=== PATIENT | male | born 1960 | race Caucasian/White ===

== ENCOUNTER → 2016-11-08 | Outpatient (CLI) | payer BC ==
[~2016-11-08] MED LIST: ACET-749 PO; CIPR-255 PO; FLM4 PO; PHEN-775 PO; SULF800T23 PO
== END | disposition home or self-care (01) ==
LOC: C.LABMFLN 07:56
PROVIDERS: ATTEND Urology
DX: R31.29 Other microscopic hematuria (principal); N39.0 Urinary tract infection, site not specified

== ENCOUNTER → 2017-03-24 | Outpatient (CLI) | payer BC ==
[2017-03-24 13:50] LABS: ALT/SGPT 29 U/L (12-78); BLOOD UREA NITROGEN 15 mg/dl (7-18); BUN/CREATININE RATIO 14.9 (10-20); CARBON DIOXIDE 32 mmol/L (21-32); CHLORIDE 106 mmol/L (98-107); CHOLESTEROL 164 mg/dl (0-200); GLUCOSE 105 mg/dl (70-99); SODIUM 144 mmol/L (136-145); TRIGLYCERIDES 105 mg/dl (0-150); VERY LOW DENSITY LIPOPROT CALC 21 mg/dl
[2017-03-24 13:58] LABS: AST/SGOT 20 U/L (15-37); CHOLESTEROL/HDL RATIO 3.4; HDL CHOLESTEROL 48 mg/dl; LDL CHOLESTEROL CALCULATED 95 mg/dl
[2017-03-24 14:10] LABS: ESTIMATED AVERAGE GLUCOSE 128 mg/dl; HA1C FLAG Normal (Normal)
== END | disposition home or self-care (01) ==
LOC: C.LABMFLN 08:20
PROVIDERS: ATTEND Family Medicine
DX: E78.00 Pure hypercholesterolemia, unspecified (principal); R97.20 Elevated prostate specific antigen [PSA]; R73.03 Prediabetes

== ENCOUNTER → 2017-04-13 | Outpatient (CLI) | payer BC | END | disposition home or self-care (01) | LOC: C.LABMFLN 09:00 | PROVIDERS: ATTEND Family Medicine | DX: R30.0 Dysuria (principal) ==

== ENCOUNTER → 2017-05-29 | Outpatient (CLI) | payer BC | END | disposition home or self-care (01) | LOC: C.PATHSPEC 17:12 | PROVIDERS: ATTEND Urology | DX: N20.0 Calculus of kidney (principal) ==

== ENCOUNTER → 2017-06-02 | Outpatient (CLI) | payer BC ==
[~2017-06-02] MED LIST changes: +OPTIRAY 320 IV PRN
--- NOTE | 2017-06-02 11:14 | DIAGNOSTIC IMAGING REPORT ---
CT ABD/PELVIS COMBO CLINICAL HISTORY: R31.0 Gross hematuria COMPARISON STUDY: None. TECHNIQUE: Unenhanced images were obtained through the abdomen and pelvis. The patient was injected with 50 cc Optiray 320. The patient is rescanned in a dynamic helical fashion during intravenous administration of additional 40 cc Optiray 320. A dose lowering technique was utilized adhering to the principles of ALARA. CT DOSE: 1311.40 mGycm FINDINGS: Lower chest: There are coronary artery calcifications. There are dependent basilar atelectatic changes. Liver: The contrast-enhanced liver is normal in size, contour, and attenuation. There is no intrahepatic biliary ductal dilatation. The hepatic veins and portal veins are patent. There is a 7 mm left lobe hepatic hypodensity, likely representing a cyst. There are calcifications within the right hepatic lobe, likely dystrophic. Gallbladder: Unremarkable. Spleen: Normal in size and attenuation. Pancreas: Unremarkable. Adrenal glands: Unremarkable. Kidneys: There is a 35mm upper pole left renal cyst. There is a 15 mm mid pole right renal cyst. No renal calculi are visualized. No solid renal masses are visualized. No collecting system or ureteral lesions are visualized. Bowel: There are no transition zones indicate bowel obstruction. There is no acute diverticulitis. The appendix appears normal. Peritoneum: There is no intraperitoneal free air or abdominal ascites. There is a tiny fat-containing right inguinal hernia. Vasculature: The abdominal aorta is normal in course and caliber. Adenopathy: None. Pelvic viscera: There are prostatic calcifications. There is a bladder base mass, likely representing a hypertrophied medial lobe of the prostate. Given history of hematuria, cystoscopic correlation should be considered. Skeletal structures: No destructive osseous lesions are seen. IMPRESSION: 1. No renal, ureteral, or bladder calculi identified 2. Bladder base mass, likely representing a hypertrophied median lobe of the prostate. Cystoscopic correlation is recommended given history of hematuria 3. No solid renal masses identified. Bilateral renal cysts. Electronically signed by: Guido Easley M.D. 06/02/2017 11:13 AM Dictated Date/Time: 06/02/2017 10:50 AM
== END | disposition home or self-care (01) ==
LOC: C.CTS 09:19
PROVIDERS: ATTEND Urology
DX: R31.0 Gross hematuria (principal); N28.1 Cyst of kidney, acquired; N32.9 Bladder disorder, unspecified

== ENCOUNTER → 2017-06-06 | Day surgery (SDC) | payer BC ==
[2017-06-02 11:14] VITALS: BMI 27.0
--- NOTE | 2017-06-02 11:45 | PAT Medication Instructions ---
Service Date Jun 02, 2017. Current Home Medication List Sulfa/Trimethoprim (Bactrim Ds 800MG/160MG), 1 TAB PO BID Tamsulosin HCl (Tamsulosin HCl), 1 CAP PO QD@1500 Medication Instructions For Your Scheduled Surgery - Take the following medications the morning of surgery with a sip of water: Sulfa/Trimethoprim (Bactrim Ds 800MG/160MG), 1 TAB PO BID - Take the following medications as scheduled the night before surgery: Sulfa/Trimethoprim (Bactrim Ds 800MG/160MG), 1 TAB PO BID Tamsulosin HCl (Tamsulosin HCl), 1 CAP PO QD@1500 If you have any questions please call us at [phone] or [phone] or [phone]
--- NOTE | 2017-06-02 12:19 | DIAGNOSTIC IMAGING REPORT ---
CHEST 2 VIEWS ROUTINE CLINICAL HISTORY: Preoperative chest COMPARISON STUDY: No previous studies for comparison. FINDINGS: The cardiac and mediastinal contours are normal. There is no evidence of focal pulmonary consolidation. There is no evidence of failure. No pleural effusions are visualized.[ IMPRESSION: No active disease in the chest. Electronically signed by: Guido Easley M.D. 06/02/2017 12:18 PM Dictated Date/Time: 06/02/2017 12:18 PM
[2017-06-02 13:05] LABS: BASO % 0.4 %; BASO ABS # 0.02 K/uL (0-0.2); COMPLETE YES; HEMATOCRIT 45.6 % (42-52); IG% 0.2 %; LYMPH % 27.4 %; LYMPH ABS # 1.39 K/uL (1.2-3.4); MEAN CELL VOLUME 89.2 fL (80-100); MEAN CORPUSCULAR HEMOGLOBIN 29.2 pg (25-34); MEAN CORPUSCULAR HGB CONC 32.7 g/dl (32-36); MEAN PLATELET VOLUME 10.3 fL (7.4-10.4); MONO % 7.5 %; NEUT % 61.5 %; PLATELET COUNT 274 K/uL (130-400); RED BLOOD COUNT 5.11 M/uL (4.7-6.1); WHITE BLOOD COUNT 5.08 K/uL (4.8-10.8)
[2017-06-02 13:25] LABS: BUN/CREATININE RATIO 9.7 (10-20); CALCIUM 8.9 mg/dl (8.5-10.1); CREATININE 1.3 mg/dl (0.60-1.40); POTASSIUM 4.2 mmol/L (3.5-5.1)
[~2017-06-06] VITALS: Ht 170.2 cm; Wt 80.6 kg
[~2017-06-06] MED LIST changes: +ACETAMINOPHEN 325 MG TAB PO PRN; +CIPROFLOXACIN / D5W 400 MG IV SCH; +DEXAMETHASONE SOD INJ 4 MG/ML VIAL ONE; +FENTANYL CITRATE INJ 50 MCG/1 ML 2 ML VIAL ONE; +LACTATED RINGER'S 1000ML 1,000 ML IV SCH; +LIDOCAINE HCL 2% 2 ML VIAL (20MG/ML) ONE; +MIDAZOLAM HCL 1 MG/ML 2ML VIAL ONE; +ONDANSETRON INJ 2 MG/ML 2 ML VIAL ONE; -OPTIRAY 320 IV PRN; +OXYCODONE/ACETAMINOPHEN 5-325 TAB PO PRN; +PROPOFOL IV EMULSION 10 MG/ML 20 ML VIAL IV ONE; +SODIUM CHLORIDE 0.9% 1000ML 1,000 ML IV SCH
[2017-06-06 11:20] VITALS: BP 119/78; PULSE 57; TEMP 36.6; O2SAT 99; Ht 170.2 cm; Wt 80.6 kg
--- NOTE | 2017-06-06 11:44 | History & Physical Bridge Note ---
H&P Re-Evaluation Bridge Note: I have examined the patient, reviewed the History & Physical and in the interval since the performance of the History & Physical I have noted the following changes of clinical significance: No changes noted
--- NOTE | 2017-06-06 12:01 | Discharge Instructions ---
Discharge Instructions Date of Service Jun 06, 2017. Admission Reason for Admission: Gross Hematuria Discharge Discharge Diagnosis / Problem: BPH Discharge Goals Goal(s): Decrease discomfort, Improve function, Increase independence, Improve disease control, Prevent Disease Progression Activity Recommendations Activity Limitations: resume your previous activity Lifting Limitations: none Exercise/Sports Limitations: none May Resume Sexual Activity: when tolerated Shower/Bathe: no limitations Driving or Machine Use: no limitations . Instructions / Follow-Up Instructions / Follow-Up Please keep your previously scheduled follow up appointment with Dr. Mccray Discharge Diet Recommended Diet: Regular Diet Pending Studies Studies pending at discharge: no Laboratory Results Hemoglobin A1c Test 03/24/17 08:14 Range/Units Estimated Average Glucose 128 mg/dl Hemoglobin A1c 6.1 H 4.5-5.6 % Lipid Panel Test 03/24/17 08:14 Range/Units Triglycerides Level 105 0-150 mg/dl Cholesterol Level 164 0-200 mg/dl HDL Cholesterol 48 mg/dl Cholesterol/HDL Ratio 3.4 LDL Cholesterol, Calculated 95 mg/dl Medical Emergencies . Who to Call and When: Medical Emergencies: If at any time you feel your situation is an emergency, please call 911 immediately. . Non-Emergent Contact Non-Emergency issues call your: Urologist Call Non-Emergent contact if: you have a fever, temperature is above 101.5, your pain is not controlled, your pain is worsening . . "Provider Documentation" section prepared by Jeffrey Carrillo. . VTE Core Measure Inpt VTE Proph given/why not?: Treatment not indicated
--- NOTE | 2017-06-06 12:22 | [facility] Operative Report ---
Operative Report Operative Date Jun 06, 2017. Pre-Operative Diagnosis Hematuria, BPH Post-Operative Diagnosis Hematuria ,BPH Procedure(s) Performed Cystoscopy Surgeon Mahendra Valve Assembler Surgeon(s) none Estimated Blood Loss 0 mL Findings Notable intravesical median lobe as well as lateral lobe hypertrophy of the prostate No bladder tumors Drains none Anesthesia MAC Complication(s) None Disposition Recovery Room / PACU (stable) Indications Hematuria Description of Procedure Cristian Islas was identified in the preoperative holding area appropriate informed consent reviewed and completed and the patient was transported to the operating suite. Upon arrival he received appropriate preoperative antibiotics in the form of ciprofloxacin. Adequate sedation was achieved, and the patient was placed in supine position where he was sterilely prepped and draped in standard fashion. Note the patient previously had an in office cystoscopy with another urologist and tolerated this very poorly. In turn he is here now for diagnostic cystoscopy secondary to his recent hematuria. I begin the case by gently inserting a flexible cystoscope per urethra. Inspection of the urethra revealed no evidence of stricture disease. Immediately upon entering the prostate was very clear that he has significant obstruction. In addition to significant lateral lobe obstruction he was found to have a protruding intravesical median lobe. Full inspection of the bladder was carried out, and no bladder tumors were identified. Ureteral orifices were identified adjacent to the intravesical median lobe of the prostate. There was no active bleeding. Following my full inspection I gently withdrew the cystoscope and concluded the case. Patient was reversed from anesthesia and taken to the PACU in stable condition. I attest to the content of the Intraoperative Record and any orders documented therein. Any exceptions are noted below.
--- NOTE | 2017-06-06 13:06 | Anesthesiology Progress Note ---
Anesthesia Post Op Note Date & Time Jun 06, 2017 at 13:06 Vital Signs Pain Intensity: 0 Vital Signs Past 12 Hours Date Time Temp Pulse Resp B/P (MAP) Pulse Ox O2 Delivery O2 Flow Rate FiO2 06/06/17 13:03 Room Air 06/06/17 12:55 53 20 105/52 99 Room Air 06/06/17 12:45 59 18 110/64 100 Room Air 06/06/17 12:35 57 18 107/61 97 Mask 10 06/06/17 12:26 36.0 67 16 110/56 99 Mask 10 06/06/17 11:20 36.6 57 18 119/78 (92) 99 Room Air Notes Mental Status: alert / awake / arousable, participated in evaluation Pt Amnestic to Procedure: Yes Nausea / Vomiting: adequately controlled Pain: adequately controlled Airway Patency, RR, SpO2: stable & adequate BP & HR: stable & adequate Hydration State: stable & adequate Anesthetic Complications: no major complications apparent
[2017-06-06 13:15] VITALS: BP 105/71; PULSE 51; TEMP 36.4; O2SAT 99
[2017-06-06 13:45] VITALS: BP 111/68; PULSE 49; O2SAT 99
[2017-06-06 14:15] VITALS: BP 106/68; PULSE 51; TEMP 36.3; O2SAT 97
== END | disposition home or self-care (01) ==
LOC: C.ACU 10:40
PROVIDERS: ATTEND Urology
DX: N40.0 Benign prostatic hyperplasia without lower urinary tract symptoms (principal)

== ENCOUNTER → 2017-06-14 | Outpatient (CLI) | payer BC ==
[~2017-06-14] MED LIST changes: -ACETAMINOPHEN 325 MG TAB PO PRN; -CIPROFLOXACIN / D5W 400 MG IV SCH; -DEXAMETHASONE SOD INJ 4 MG/ML VIAL ONE; -FENTANYL CITRATE INJ 50 MCG/1 ML 2 ML VIAL ONE; -LACTATED RINGER'S 1000ML 1,000 ML IV SCH; -LIDOCAINE HCL 2% 2 ML VIAL (20MG/ML) ONE; -MIDAZOLAM HCL 1 MG/ML 2ML VIAL ONE; -ONDANSETRON INJ 2 MG/ML 2 ML VIAL ONE; -OXYCODONE/ACETAMINOPHEN 5-325 TAB PO PRN; -PROPOFOL IV EMULSION 10 MG/ML 20 ML VIAL IV ONE; -SODIUM CHLORIDE 0.9% 1000ML 1,000 ML IV SCH
== END | disposition home or self-care (01) ==
LOC: C.LABSPEC 11:02
PROVIDERS: ATTEND Urology
DX: R31.0 Gross hematuria (principal); R31.29 Other microscopic hematuria

== ENCOUNTER 2017-06-29 11:40 | Observation (INO) | payer BC ==
[2017-06-20 16:03] VITALS: BMI 27.0
[~2017-06-29] VITALS: Ht 170.2 cm; Wt 80.6 kg
[2017-06-29] VITALS (8 sets, daily range): BP systolic 107–144; BP diastolic 66–86; PULSE 46–60; TEMP 36.3–36.8; O2SAT 95–100; Ht 170.2 cm; Wt 80.6 kg
[~2017-06-29 11:40] MED LIST changes: -ACET-749 PO; -CIPR-255 PO; +CIPROFLOXACIN / D5W 400 MG IV SCH; +DEXAMETHASONE SOD INJ 4 MG/ML VIAL ONE; +FENTANYL CITRATE INJ 50 MCG/1 ML 2 ML VIAL ONE; +LACTATED RINGER'S 1000ML 1,000 ML IV SCH; +LIDOCAINE HCL 2% 2 ML VIAL (20MG/ML) ONE; +MIDAZOLAM HCL 1 MG/ML 2ML VIAL ONE; +ONDANSETRON INJ 2 MG/ML 2 ML VIAL ONE; -PHEN-775 PO; +PROPOFOL IV EMULSION 10 MG/ML 20 ML VIAL IV ONE; -SULF800T23 PO
[2017-06-29] MEDS ORDERED: HYDROmorphone INJ 2 MG/ML SYR/VIAL IV PRN (12:00)
[2017-06-29] MEDS ORDERED: PHENYLEPHRINE 100MCG/ML 5ML SYR IV PRN (12:00)
[2017-06-29] MEDS ORDERED: FLUMAZENIL 0.1 MG/1 ML 10 ML VIAL IV PRN (12:00)
[2017-06-29] MEDS ORDERED: ONDANSETRON INJ 2 MG/ML 2 ML VIAL IV PRN ×2 (12:00→13:30)
[2017-06-29] MEDS ORDERED: NALOXONE HCL 0.4 MG/1 ML VIAL/CARP IV PRN (12:00)
[2017-06-29] MEDS ORDERED: FENTANYL CITRATE INJ 50 MCG/1 ML 2 ML VIAL IV PRN (12:00)
[2017-06-29] MEDS ORDERED: ATROPINE SULFATE 0.1 MG/ML 5ML SYR IV PRN (12:00)
[2017-06-29] MEDS ORDERED: EpHEDrine SULFATE INJ 50 MG/ML AMP IV PRN (12:00)
[2017-06-29] MEDS ORDERED: LABETALOL HCL IV 5 MG/ML 20ML IV PRN (12:00)
[2017-06-29] MEDS ORDERED: MEPERIDINE HCL 25 MG/ML CARP IV PRN (12:00)
[2017-06-29] MEDS ORDERED: BELLADONNA/OPIUM SUPP 60 MG SUPP PR ONE ×2 (13:17)
[2017-06-29] MEDS ORDERED: DiphenhydrAMINE HCL 50 MG/ML VIAL IV PRN (13:30)
[2017-06-29] MEDS ORDERED: ACETAMINOPHEN/CODEINE 300/30MG TAB PO PRN (13:30)
[2017-06-29] MEDS ORDERED: ACETAMINOPHEN 325 MG TAB PO PRN (13:30)
--- NOTE | 2017-06-29 13:31 | [facility] Operative Report ---
Operative Report Operative Date Jun 29, 2017. Pre-Operative Diagnosis Benign prostatic hyperplasia with urinary obstruction Post-Operative Diagnosis Benign prostatic hyperplasia with urinary obstruction Procedure(s) Performed Cystoscopy and Bipolar Transurethral Resection of Prostate Surgeon Dr. Mccray Pattern Maker Programer Surgeon(s) NONE Estimated Blood Loss 10ml Findings Trilobar hypertrophy of the prostate Specimens NONE Drains 22 Estonian Garcia catheter Anesthesia Gen. Complication(s) None Disposition Recovery Room / PACU (stable) Indications Severe lower urinary tract symptoms and recurrent infections Description of Procedure Patient was identified in the preoperative holding area, appropriate informed consent reviewed and completed, and the patient was transported to the operating suite. Upon arrival he received appropriate preoperative antibiotics in the form of ciprofloxacin. Adequate general anesthesia was achieved, and the patient was placed in dorsal lithotomy position where he was sterilely prepped and draped in standard fashion. I begin the case by passing a 24 Estonian resectoscope with 30 lens and visual obturator. Inspection of the urethra revealed no evidence of stricture disease. He was noted to have a significantly enlarged prostate with bilobar hypertrophy and upon entry into the bladder confirmation of significant intravesical median lobe. Full inspection of the bladder was carried out utilizing a 30 and 70 lens. This revealed moderate trabeculations, ureteral orifices were in orthotopic position , no evidence of tumors or other gross abnormalities. Following my inspection, exchanged the visual obturator for resecting element with a button electrode. I begin by incising the bladder neck at 5:00 and 7:00 utilizing a button Directed from the ureteral orifice towards the verumontanum on each side. I then proceeded to resect the intravesical median lobe in the area between the 2 incisions. After the bladder neck was flattened, I turned my attention to the left lateral lobe and began with an anterior aspect of this and move towards the posterior aspect. Same procedure on the right. Concluded my resection by resecting apical tissue adjacent to the verumontanum. I confirmed excellent hemostasis and adequate resection. Prostatic urethra appeared to be widely patent the conclusion of the case. I left the bladder full and inserted a 22 Estonian Garcia catheter after removing my equipment. Patient was extubated and taken to the PACU in stable condition. I attest to the content of the Intraoperative Record and any orders documented therein. Any exceptions are noted below.
[2017-06-29] MEDS ORDERED: IV FLUIDS COMPLETED PRN (13:45)
[2017-06-29] MEDS ORDERED: FENTANYL CITRATE INJ 50 MCG/1 ML 2 ML VIAL ONE (13:58)
--- NOTE | 2017-06-29 14:07 | Anesthesiology Progress Note ---
Anesthesia Post Op Note Date & Time Jun 29, 2017 at 14:07 Vital Signs Pain Intensity: 2 Vital Signs Past 12 Hours Date Time Temp Pulse Resp B/P (MAP) Pulse Ox O2 Delivery O2 Flow Rate FiO2 06/29/17 14:05 36.1 52 16 129/83 100 Nasal Cannula 2 06/29/17 13:55 54 16 133/88 100 Nasal Cannula 2 06/29/17 13:45 57 16 118/81 100 Oxymask 3 06/29/17 13:35 61 14 137/91 100 Oxymask 5 06/29/17 13:29 36.3 62 16 143/86 99 Oxymask 5 06/29/17 12:11 36.7 60 18 139/84 (102) 100 Room Air Notes Mental Status: alert / awake / arousable, participated in evaluation Pt Amnestic to Procedure: Yes Nausea / Vomiting: adequately controlled Pain: adequately controlled Airway Patency, RR, SpO2: stable & adequate BP & HR: stable & adequate Hydration State: stable & adequate Anesthetic Complications: no major complications apparent
[2017-06-29] MEDS: LACTATED RINGER'S 1000ML 1,000 ML IV SCH ×2 (15:26→21:11)
[2017-06-29] MEDS: ACETAMINOPHEN/CODEINE 300/30MG TAB PO PRN ×3 (15:26→22:35)
[2017-06-29] MEDS: CEFAZOLIN IV 1,000 MG in DEXTROSE 5% 50ML 50 ML IV SCH ×2 (16:14→23:29)
[2017-06-30 03:45] VITALS: BP 111/70; PULSE 51; TEMP 36.8; O2SAT 96
[2017-06-30] MEDS: LACTATED RINGER'S 1000ML 1,000 ML IV SCH (05:18)
[2017-06-30 07:06] LABS: BASO % 0.1 %; BASO ABS # 0.01 K/uL (0-0.2); COMPLETE YES; HEMATOCRIT 42.7 % (42-52); IG% 0.3 %; LYMPH % 5.1 %; LYMPH ABS # 0.99 K/uL (1.2-3.4); MEAN CELL VOLUME 88.4 fL (80-100); MEAN CORPUSCULAR HEMOGLOBIN 29.4 pg (25-34); MEAN CORPUSCULAR HGB CONC 33.3 g/dl (32-36); MEAN PLATELET VOLUME 10.2 fL (7.4-10.4); NEUT % 89.5 %; PLATELET COUNT 248 K/uL (130-400); RED BLOOD COUNT 4.83 M/uL (4.7-6.1); WHITE BLOOD COUNT 19.25 K/uL (4.8-10.8)
[2017-06-30 07:25] VITALS: BP 115/68; PULSE 54; TEMP 36.6; O2SAT 96
[2017-06-30 07:32] LABS: BUN/CREATININE RATIO 12.7 (10-20); CALCIUM 8.7 mg/dl (8.5-10.1); CREATININE 0.97 mg/dl (0.60-1.40); POTASSIUM 4.2 mmol/L (3.5-5.1)
[2017-06-30] MEDS ORDERED: ACET-749 PO (08:07)
[2017-06-30] MEDS ORDERED: PHEN-775 PO (08:07)
[2017-06-30] MEDS ORDERED: CIPR-255 PO (08:07)
--- NOTE | 2017-06-30 08:09 | Anesthesiology Progress Note ---
Anesthesia Post Op Note Date & Time Jun 30, 2017 at 08:09 Vital Signs Pain Intensity: 0.0 Vital Signs Past 12 Hours Date Time Temp Pulse Resp B/P (MAP) Pulse Ox O2 Delivery O2 Flow Rate FiO2 06/30/17 07:25 36.6 54 14 115/68 (84) 96 Room Air 06/30/17 03:45 36.8 51 16 111/70 (84) 96 Room Air 06/29/17 23:30 Room Air 06/29/17 23:16 36.8 54 16 107/66 (80) 95 Room Air 06/29/17 20:35 Room Air Notes Mental Status: alert / awake / arousable, participated in evaluation Pt Amnestic to Procedure: Yes Nausea / Vomiting: adequately controlled Pain: adequately controlled Airway Patency, RR, SpO2: stable & adequate BP & HR: stable & adequate Hydration State: stable & adequate Anesthetic Complications: no major complications apparent
--- NOTE | 2017-06-30 08:09 | Discharge Instructions ---
Discharge Instructions Date of Service Jun 30, 2017. Admission Reason for Admission: Benign Prostatic Hyperplasia Discharge Discharge Diagnosis / Problem: BPH Discharge Goals Goal(s): Decrease discomfort, Improve function, Increase independence, Improve disease control, Prevent Disease Progression Activity Recommendations Activity Limitations: resume your previous activity Lifting Limitations: none Exercise/Sports Limitations: none May Resume Sexual Activity: when tolerated Shower/Bathe: no limitations Driving or Machine Use: no limitations . Instructions / Follow-Up Instructions / Follow-Up Please keep your previously scheduled follow-up appointment with Dr. Mccray [facility] Diet(s): Regular Diet Discharge Diet Recommended Diet: Regular Diet Procedures Procedures Performed: Cystoscopy and Bipolar Transurethral Resection of Prostate Pending Studies Studies pending at discharge: no Medical Emergencies . Who to Call and When: Medical Emergencies: If at any time you feel your situation is an emergency, please call 911 immediately. . Non-Emergent Contact Non-Emergency issues call your: Urologist Call Non-Emergent contact if: you have a fever, temperature is above 101.5, your pain is not controlled, your pain is worsening . . "Provider Documentation" section prepared by Jeffrey Carrillo. . VTE Core Measure Inpt VTE Proph given/why not?: Treatment not indicated [place] Drug Monitoring Program Search Results: patient reviewed within database, no issues identified
--- NOTE | 2017-06-30 08:13 | Progress Note ---
Progress Note Date of Service Jun 30, 2017. Progress Note Mild catheter Discomfort overnight otherwise no issues Urine has cleared appropriately Vital Signs Past 12 Hours Date Time Temp Pulse Resp B/P (MAP) Pulse Ox O2 Delivery O2 Flow Rate FiO2 06/30/17 07:25 36.6 54 14 115/68 (84) 96 Room Air 06/30/17 03:45 36.8 51 16 111/70 (84) 96 Room Air 06/29/17 23:30 Room Air 06/29/17 23:16 36.8 54 16 107/66 (80) 95 Room Air 06/29/17 20:35 Room Air 06/30/17 06:30 Red Blood Count 4.83, Mean Corpuscular Volume 88.4, Mean Corpuscular Hemoglobin 29.4, Mean Corpuscular Hemoglobin Concent 33.3, Mean Platelet Volume 10.2, Neutrophils (%) (Auto) 89.5, Lymphocytes (%) (Auto) 5.1, Monocytes (%) (Auto) 5.0, Eosinophils (%) (Auto) 0.0, Basophils (%) (Auto) 0.1, Neutrophils # (Auto) 17.23, Lymphocytes # (Auto) 0.99, Monocytes # (Auto) 0.97, Eosinophils # (Auto) 0.00, Basophils # (Auto) 0.01 06/30/17 06:30 Test 06/30/17 06:30 White Blood Count 19.25 K/uL (4.8-10.8) Red Blood Count 4.83 M/uL (4.7-6.1) Hemoglobin 14.2 g/dL (14.0-18.0) Hematocrit 42.7 % (42-52) Mean Corpuscular Volume 88.4 fL (80-100) Mean Corpuscular Hemoglobin 29.4 pg (25-34) Mean Corpuscular Hemoglobin Concent 33.3 g/dl (32-36) Platelet Count 248 K/uL (130-400) Mean Platelet Volume 10.2 fL (7.4-10.4) Neutrophils (%) (Auto) 89.5 % Lymphocytes (%) (Auto) 5.1 % Monocytes (%) (Auto) 5.0 % Eosinophils (%) (Auto) 0.0 % Basophils (%) (Auto) 0.1 % Neutrophils # (Auto) 17.23 K/uL (1.4-6.5) Lymphocytes # (Auto) 0.99 K/uL (1.2-3.4) Monocytes # (Auto) 0.97 K/uL (0.11-0.59) Eosinophils # (Auto) 0.00 K/uL (0-0.5) Basophils # (Auto) 0.01 K/uL (0-0.2) RDW Standard Deviation 43.9 fL (36.4-46.3) RDW Coefficient of Variation 13.5 % (11.5-14.5) Immature Granulocyte % (Auto) 0.3 % Immature Granulocyte # (Auto) 0.05 K/uL (0.00-0.02) Anion Gap 7.0 mmol/L (3-11) Est Creatinine Clear Calc Drug Dose 85.5 ml/min Estimated GFR () 100.0 Estimated GFR (Non- 86.3 BUN/Creatinine Ratio 12.7 (10-20) Calcium Level 8.7 mg/dl (8.5-10.1) No apparent distress Awake alert oriented Abdomen soft Urine clear Ambulating A/P: Postoperative day 1 status post TURP Plan for voiding trial this morning I will cover him with antibiotics secondary to some old pus located within the prostate and resected and drained during the surgery Overall progressing appropriately Plan for discharge home after voiding trial
[2017-06-30] MEDS ORDERED: PHENAZOPYRIDINE HCL 200 MG TAB PO ONE (08:30)
[2017-06-30] MEDS: ACETAMINOPHEN/CODEINE 300/30MG TAB PO PRN (09:23)
[2017-06-30 10:52] VITALS: BP 115/68; PULSE 54; TEMP 36.6; O2SAT 96
--- NOTE | 2017-07-10 08:36 | Discharge Summary ---
Discharge Summary Date of Service Jul 10, 2017. Discharge Summary Admission Date: Jun 29, 2017 at 13:25 Discharge Date: Jun 30, 2017 Discharge Disposition: Home Principal Diagnosis: BPH Procedures: TURP Medication Reconciliation New Medications: Ciprofloxacin Hcl (Cipro) 500 Mg Tab 500 MG PO BID, #6 TAB Phenazopyridine Hcl (Pyridium) 200 Mg Tab 200 MG PO TID, #21 TAB Acetaminophen/Codeine (Tylenol W/Codeine #3) 300 Mg/30 Mg Tab 1 TAB PO Q6H PRN for moderate pain (pain scale 4-6), #20 TAB Discontinued Medications: Tamsulosin HCl (Tamsulosin HCl) 0.4 Mg Cap 1 CAP PO QD@1500 Hospital Course Admitted for TURP on 06/29/2017, details of the procedure is dictated previously an operative report. In summary, he tolerated the procedure extremely well. He was in stable condition on the floor overnight, and tolerated his catheter relatively well. He passed a voiding trial in the morning of postoperative day one and was discharged home. Total time spent on discharge = This includes examination of the patient, discharge planning, medication reconciliation, and communication with other providers. Discharge Instructions Please see previously written discharge instructions
== END 2017-06-30 11:25 | disposition home or self-care (01) ==
LOC: C.ACU 11:40 → C.MSW 13:25 → ENRESERV 13:57
PROVIDERS: ADMIT Urology; ATTEND Urology
DX: N40.1 Benign prostatic hyperplasia with lower urinary tract symptoms (principal); N13.8 Other obstructive and reflux uropathy; E78.00 Pure hypercholesterolemia, unspecified; M54.12 Radiculopathy, cervical region; R73.03 Prediabetes; Z72.0 Tobacco use; Z82.49 Family history of ischemic heart disease and other diseases of the circulatory system

== ENCOUNTER → 2018-02-15 | Outpatient (CLI) | payer BC ==
[~2018-02-15] MED LIST changes: +ACET-749 PO; +CIPR-255 PO; -CIPROFLOXACIN / D5W 400 MG IV SCH; -DEXAMETHASONE SOD INJ 4 MG/ML VIAL ONE; -FENTANYL CITRATE INJ 50 MCG/1 ML 2 ML VIAL ONE; -FLM4 PO; -LACTATED RINGER'S 1000ML 1,000 ML IV SCH; -LIDOCAINE HCL 2% 2 ML VIAL (20MG/ML) ONE; -MIDAZOLAM HCL 1 MG/ML 2ML VIAL ONE; -ONDANSETRON INJ 2 MG/ML 2 ML VIAL ONE; -PROPOFOL IV EMULSION 10 MG/ML 20 ML VIAL IV ONE
--- NOTE | 2018-02-15 13:55 | DIAGNOSTIC IMAGING REPORT ---
[facility] CLINICAL HISTORY: Nephrolithiasis. FINDINGS: 2 AP supine abdominal radiographs are compared to study dated 09/14/2015 and correlated with abdominal CT dated 06/02/2017. There is a nonobstructed abdominal bowel gas pattern noting moderate colonic fecal retention. Colonic contents partially obscure the renal shadows. There is no radiographic evidence of nephrolithiasis on today's examination. Prostatic calcifications are noted in the pelvis. The bony structures appear intact. IMPRESSION: There is no radiographic evidence of nephrolithiasis on today's examination. Electronically signed by: Pato Hernandez M.D. 02/15/2018 1:53 PM Dictated Date/Time: 02/15/2018 1:52 PM
== END | disposition home or self-care (01) ==
LOC: C.RAD 13:25
PROVIDERS: ATTEND Urology
DX: N20.0 Calculus of kidney (principal)